=== PATIENT | male | born 1980 | race Caucasian/White ===

== ENCOUNTER 2018-03-18 14:55 | Emergency (ER) | payer OTHER, SELFPAY ==
[2018-03-18 15:37] VITALS: BP 127/66; PULSE 78; RESP 16; TEMP 36.7; O2SAT 100
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
[2018-03-18 16:32] VITALS: BP 127/66; PULSE 78; RESP 16; TEMP 36.7; O2SAT 100
== END 2018-03-18 16:34 | disposition home or self-care (01) ==
LOC: ER 16:46
PROVIDERS: Emergency Provider Emergency Medicine
DX: S81.011A Laceration without foreign body, right knee, initial encounter (principal); V18.0XXA Pedal cycle driver injured in noncollision transport accident in nontraffic accident, initial encounter; Y93.55 Activity, bike riding
CPT/HCPCS: 12002; 90471